=== PATIENT | male | born 1965 | race Caucasian/White ===

== ENCOUNTER 2018-09-18 16:13 | Emergency (ER) | payer OTHER ==
[~2018-09-18] VITALS: Ht 177.8 cm; Wt 104.5 kg
[2018-09-18] MEDS ORDERED: KETOROLAC TROMETHAMINE 60 MG/2 ML VIAL IM ONE (16:45)
[2018-09-18] MEDS ORDERED: PENICILLIN V POTASSIUM 500 MG TABLET PO ONE (16:45)
[2018-09-18 18:10] VITALS: BP 150/94
== END 2018-09-18 18:36 | disposition home or self-care (01) ==
LOC: EMS 16:13
DX: K02.9 Dental caries, unspecified (principal)
CPT/HCPCS: 96372; 99283; J1885

== ENCOUNTER 2019-11-04 20:57 | Emergency (ER) | payer OTHER ==
[~2019-11-04] VITALS: Ht 172.7 cm; Wt 95.5 kg
[2019-11-04] MEDS ORDERED: IBUP-2070 PO (21:06)
[2019-11-04 21:21] VITALS: BP 172/101
[2019-11-04] MEDS ORDERED: AMOX TR/POT CLAV 875 MG/125 MG TABLET PO ONE (21:45)
[2019-11-04] MEDS ORDERED: ACETAMINOPHEN 500 MG TABLET PO ONE (21:45)
== END 2019-11-04 21:57 | disposition home or self-care (01) ==
LOC: EMS 20:58
DX: K08.89 Other specified disorders of teeth and supporting structures (principal)

== ENCOUNTER 2020-06-14 19:33 | Emergency (ER) | payer OTHER ==
[~2020-06-14] VITALS: Ht 172.7 cm; Wt 90.9 kg
[~2020-06-14 19:33] MED LIST: IBUP-2070 PO
[2020-06-14] MEDS ORDERED: METO50 PO (20:03)
[2020-06-14] MEDS ORDERED: IBUPROFEN 600 MG TABLET PO ONE (20:30)
[2020-06-14 20:38] VITALS: BP 159/90
== END 2020-06-14 20:56 | disposition home or self-care (01) ==
LOC: EMS 19:36
DX: K02.9 Dental caries, unspecified (principal); I10 Essential (primary) hypertension
CPT/HCPCS: 99283

== ENCOUNTER 2024-10-08 05:11 | Emergency (ER) | payer OTHER ==
[~2024-10-08] VITALS: Ht 170.2 cm; Wt 81.8 kg
[~2024-10-08 05:11] MED LIST changes: +IBUP-1492 PO; -IBUP-2070 PO; +METO50 PO
[2024-10-08 05:18] VITALS: TEMP 97.5
[2024-10-08] MEDS: IBUPROFEN 400 MG TABLET PO ONE (05:59)
[2024-10-08] MEDS: HYDROCODONE/ACETAMINOPHEN 5-325 MG TABLET PO ONE (05:59)
[2024-10-08 06:00] VITALS: BP 149/89; PULSE 70; RESP 16; O2SAT 96
[2024-10-08] MEDS: PENICILLIN V POTASSIUM 500 MG TABLET PO ONE (06:21)
[2024-10-08] MEDS ORDERED: PENI500T2 PO (06:27)
== END 2024-10-08 06:30 | disposition home or self-care (01) ==
LOC: EMS 05:12
DX: K02.9 Dental caries, unspecified (principal); I10 Essential (primary) hypertension; Z79.899 Other long term (current) drug therapy
CPT/HCPCS: 99284; Z7502; Z7610